=== PATIENT | male | born 2005 | race Caucasian/White ===

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

== ENCOUNTER 2025-08-22 05:37 | Emergency (ER) | payer OTHER, BC ==
[~2025-08-22] VITALS: Ht 180.3 cm; Wt 88.6 kg
[~2025-08-22 05:37] MED LIST: BACIOIN5 OD
[2025-08-22 06:27] LABS: PLATELET COUNT, AUTOMATED 288 10^3/uL (150-450)
[2025-08-22 06:39] LABS: INR 0.89
[2025-08-22 06:58] LABS: ALT/SGPT 28 U/L (7.0-40); AST/SGOT 41 U/L (<34); CALCIUM LEVEL 9.0 MG/DL (8.5-10.1); CARBON DIOXIDE LEVEL 26 MMOL/L (20-31); CHLORIDE LEVEL 102 MMOL/L (98-107); CREATININE FOR GFR 1.01 MG/DL (0.70-1.30); GLOMERULAR FILTRATION RATE > 90.0 (>60); POTASSIUM SERUM 3.8 MMOL/L (3.5-5.1); SODIUM LEVEL 142 MMOL/L (136-145)
[2025-08-22 07:00] LABS: ETHYL ALCOHOL (ETHANOL) 0.231 % (0.000-0.010)
[2025-08-22] MEDS ORDERED: ISOVUE-370 76% 100 ML VIAL As Ordered ONE (07:08)
[2025-08-22 10:01] VITALS: BP 120/61; TEMP 98.6; O2SAT 97
== END 2025-08-22 10:10 | disposition home or self-care (01) ==
LOC: M ED 05:37
DX: S20.214A Contusion of middle front wall of thorax, initial encounter (principal); S00.83XA Contusion of other part of head, initial encounter; S70.02XA Contusion of left hip, initial encounter; Y92.9 Unspecified place or not applicable; Y93.9 Activity, unspecified; Y99.9 Unspecified external cause status; V48.5XXA Car driver injured in noncollision transport accident in traffic accident, initial encounter
CPT/HCPCS: 36415; 70450; 71260; 72125; 73521; 74177; 80053; 82077; 84484; 85027; 85610; 93005; 99284; Q9967